=== PATIENT | female | born 1990 | race African-American/Black ===

== ENCOUNTER 2021-04-04 10:26 | Outpatient (CLI) | payer BC | END 2021-04-04 10:27 | disposition home or self-care (01) | LOC: TBSIIMAG 10:26 | PROVIDERS: ATTEND Family Medicine | DX: M47.26 Other spondylosis with radiculopathy, lumbar region (principal); M51.16 Intervertebral disc disorders with radiculopathy, lumbar region; M51.27 Other intervertebral disc displacement, lumbosacral region; M48.07 Spinal stenosis, lumbosacral region | CPT/HCPCS: 72148 ==